=== PATIENT | female | born 1960 | race Caucasian/White ===

== ENCOUNTER 2023-09-21 16:19 | Emergency (ER) | payer OTHER ==
[~2023-09-21] VITALS: Ht 162.6 cm; Wt 102.6 kg
[2023-09-21] MEDS ORDERED: TREL1AER PO (16:28)
[2023-09-21] MEDS ORDERED: LISI20TA33 PO (16:28)
[2023-09-21] MEDS ORDERED: OMEP40CA4 PO (16:28)
[2023-09-21] MEDS ORDERED: CVSTAB PO (16:28)
[2023-09-21 20:36] LABS: BASO # 0.1 10^3/uL (0.0-0.2); BASO % 1.1 % (0.0-1.0); EOS # 0.2 10^3/uL (0.0-0.5); EOS % 3.4 % (0.0-3.0); HEMATOCRIT 41.2 % (36.0-47.0); HEMOGLOBIN 12.6 g/dl (12.0-15.5); LYMPH # 1.2 10^3/uL (1.5-5.0); LYMPH % 26.3 % (24.0-44.0); MEAN CORPUSCULAR HEMOGLOBIN 25.7 pg (27.0-33.0); MEAN CORPUSCULAR HGB CONC 30.6 g/dl (32.0-36.5); MEAN CORPUSCULAR VOLUME 83.9 fl (80.0-96.0); MONO # 0.4 10^3/uL (0.0-0.8); MONO % 9.6 % (2.0-8.0); NEUTROPHILS # 2.6 10^3/uL (1.5-8.5); NEUTROPHILS % 59.4 % (36.0-66.0); RED BLOOD COUNT 4.91 10^6/uL (4.00-5.40); WHITE BLOOD COUNT 4.4 10^3/uL (4.0-10.0)
[2023-09-21 20:37] LABS: PLATELET COUNT, AUTOMATED 173 10^3/uL (150-450)
[2023-09-21] MEDS ORDERED: ISOVUE-370 76% 100ML VIAL As Ordered ONE (20:41)
[2023-09-21 21:36] LABS: ANISOCYTOSIS 1+; PLATELET ESTIMATE NORMAL (NORMAL)
[2023-09-21 21:37] LABS: MICROCYTOSIS 1+
[2023-09-21 21:41] LABS: HYPOCHROMASIA 1+
[2023-09-21 22:21] VITALS: BP 144/80; TEMP 97.2; O2SAT 98
== END 2023-09-21 22:23 | disposition home or self-care (01) ==
LOC: M ED 16:19
DX: H92.02 Otalgia, left ear (principal); I10 Essential (primary) hypertension; E78.5 Hyperlipidemia, unspecified; Z79.810 Long term (current) use of selective estrogen receptor modulators (SERMs); Z79.899 Other long term (current) drug therapy
CPT/HCPCS: 36415; 70487; 80047; 85025; 86140; 99284; Q9967

== ENCOUNTER → 2023-10-08 | Outpatient (REF) | payer OTHER ==
[~2023-10-08] MED LIST: CVSTAB PO; LISI20TA33 PO; OMEP40CA4 PO; TREL1AER PO
== END ==
LOC: M LAB REF 17:06
PROVIDERS: ATTEND Physician Assistant Medical
DX: H60.62 Unspecified chronic otitis externa, left ear (principal)

== ENCOUNTER → 2023-10-15 | Outpatient (CLI) | payer OTHER ==
[~2023-10-15] MED LIST changes: +PROHANCE 279.3MG/ML 15ML VIAL ONE; +PROHANCE 279.3MG/ML 5ML VIAL ONE
== END ==
LOC: M PLAIMG 13:55
PROVIDERS: ATTEND Physician Assistant Medical
DX: R22.1 Localized swelling, mass and lump, neck (principal)

== ENCOUNTER → 2023-10-22 | Outpatient (CLI) | payer OTHER ==
[~2023-10-22] MED LIST changes: +LIDOCAINE 1% MDV 20ML VIAL As Ordered ONE; -PROHANCE 279.3MG/ML 15ML VIAL ONE; -PROHANCE 279.3MG/ML 5ML VIAL ONE
[2023-10-22 10:30] VITALS: TEMP 99
[2023-10-22 11:12] VITALS: BP 155/99; O2SAT 96
== END ==
LOC: M IRPRO 10:17
PROVIDERS: ATTEND Physician Assistant Medical
DX: R22.1 Localized swelling, mass and lump, neck (principal)

== ENCOUNTER → 2023-10-29 | Outpatient (CLI) | payer OTHER ==
[~2023-10-29] MED LIST changes: -LIDOCAINE 1% MDV 20ML VIAL As Ordered ONE
== END ==
LOC: M RAD 15:26
PROVIDERS: ATTEND Physician Assistant Medical
DX: R22.1 Localized swelling, mass and lump, neck (principal)

== ENCOUNTER → 2023-11-21 | Outpatient (CLI) | payer OTHER ==
[~2023-11-21] MED LIST changes: +LIDOCAINE 1% MDV 20ML VIAL As Ordered ONE
[2023-11-21 12:28] VITALS: TEMP 98.4
[2023-11-21 13:00] VITALS: BP 128/86; O2SAT 96
== END ==
LOC: M IRPRO 12:04
PROVIDERS: ATTEND Physician Assistant Medical
DX: E04.1 Nontoxic single thyroid nodule (principal)

== ENCOUNTER → 2024-01-12 | Outpatient (CLI) | payer OTHER ==
[~2024-01-12] MED LIST changes: +ASPI81CH48 PO; +FERR325T3 PO; -LIDOCAINE 1% MDV 20ML VIAL As Ordered ONE
== END ==
LOC: M ONCR 09:30
PROVIDERS: ATTEND General Practice
DX: C07 Malignant neoplasm of parotid gland (principal); Z87.891 Personal history of nicotine dependence; Z71.2 Person consulting for explanation of examination or test findings; Z98.890 Other specified postprocedural states; Z90.49 Acquired absence of other specified parts of digestive tract; Z98.51 Tubal ligation status; Z90.710 Acquired absence of both cervix and uterus; Z80.0 Family history of malignant neoplasm of digestive organs; Z79.82 Long term (current) use of aspirin; Z79.51 Long term (current) use of inhaled steroids; Z79.899 Other long term (current) drug therapy

== ENCOUNTER 2024-01-20 13:40 | Outpatient (RCR) | payer OTHER | END 2024-01-25 | LOC: M ONCR 13:40 | PROVIDERS: ATTEND General Practice | DX: Z51.0 Encounter for antineoplastic radiation therapy (principal); C07 Malignant neoplasm of parotid gland ==

== ENCOUNTER 2024-02-04 11:51 | Emergency (ER) | payer OTHER ==
[~2024-02-04] VITALS: Ht 162.6 cm; Wt 85.9 kg
[2024-02-04] MEDS: ASPIRIN 81MG CHEW TABLET PO ONE (12:33)
[2024-02-04 12:44] LABS: BASO % 0.6 % (0.0-1.0); EOS # 0.1 10^3/uL (0.0-0.5); EOS % 1.4 % (0.0-3.0); HEMATOCRIT 33.8 % (36.0-47.0); HEMOGLOBIN 10.1 g/dl (12.0-15.5); LYMPH # 0.4 10^3/uL (1.5-5.0); LYMPH % 8.2 % (24.0-44.0); MEAN CORPUSCULAR HEMOGLOBIN 25.5 pg (27.0-33.0); MEAN CORPUSCULAR HGB CONC 29.9 g/dl (32.0-36.5); MEAN CORPUSCULAR VOLUME 85.4 fl (80.0-96.0); MONO # 0.2 10^3/uL (0.0-0.8); NEUTROPHILS # 4.3 10^3/uL (1.5-8.5); NEUTROPHILS % 85.6 % (36.0-66.0); PLATELET COUNT, AUTOMATED 225 10^3/uL (150-450); RED BLOOD COUNT 3.96 10^6/uL (4.00-5.40)
[2024-02-04 12:57] LABS: INR 1.17; PARTIAL THROMBOPLASTIN TIME 29.9 SECONDS (24.8-34.2); PROTHROMBIN TIME 14.6 SECONDS (12.5-14.5)
[2024-02-04 13:24] LABS: LIPASE 56 U/L (12-53)
[2024-02-04 13:26] LABS: ALBUMIN 3.3 G/DL (3.2-5.2); ALKALINE PHOSPHATASE 87 U/L (46-116); ALT/SGPT 27 U/L (7.0-40); AST/SGOT 32 U/L (<34); BILIRUBIN,DIRECT 0.4 MG/DL (<0.4); BLOOD UREA NITROGEN 17 MG/DL (9-23); CALCIUM LEVEL 9.1 MG/DL (8.3-10.6); CARBON DIOXIDE LEVEL 23 MMOL/L (20-31); CHLORIDE LEVEL 113 MMOL/L (98-107); CREATININE FOR GFR 0.47 MG/DL (0.55-1.30); GLOMERULAR FILTRATION RATE > 60.0 (>45); GLUCOSE, FASTING 137 MG/DL (74-106); SODIUM LEVEL 143 MMOL/L (136-145)
[2024-02-04 13:29] LABS: CPK CREATINE PHOSPHOKINASE 79 U/L (34-145); MB/CK RELATIVE INDEX 1.26 (< OR =4); THYROID STIMULATING HORMONE 1.125 uIU/ML (0.55-4.78)
[2024-02-04 14:23] LABS: MB/CK RELATIVE INDEX 1.36 (< OR =4)
[2024-02-04] MEDS ORDERED: ISOVUE-370 76% 100ML VIAL As Ordered ONE (14:51)
[2024-02-04 17:01] VITALS: BP 137/74; TEMP 97.7; O2SAT 97
== END 2024-02-04 17:05 | disposition home or self-care (01) ==
LOC: M ED 11:51
DX: R07.9 Chest pain, unspecified (principal); I44.0 Atrioventricular block, first degree; I45.81 Long QT syndrome; K21.9 Gastro-esophageal reflux disease without esophagitis; I10 Essential (primary) hypertension; Z87.891 Personal history of nicotine dependence; Z79.1 Long term (current) use of non-steroidal anti-inflammatories (NSAID); Z79.810 Long term (current) use of selective estrogen receptor modulators (SERMs); Z79.899 Other long term (current) drug therapy
CPT/HCPCS: 36415; 71045; 71275; 80048; 80076; 82550; 82553; 83690; 84443; 84484; 85025; 85610; 85730; 93005; 93041; 94760; 99285; Q9967

== ENCOUNTER → 2024-02-25 | Outpatient (RCR) | payer OTHER ==
[~2024-02-25] MED LIST changes: +FLUC100T3 PO; +ONDA-84 PO; +PROC10TA5 PO
== END ==
LOC: M ONCR 01-26 13:50
PROVIDERS: ATTEND General Practice
DX: Z51.0 Encounter for antineoplastic radiation therapy (principal); C07 Malignant neoplasm of parotid gland

== ENCOUNTER 2024-03-22 12:20 | Outpatient (RCR) | payer OTHER ==
[2024-03-26] MEDS ORDERED: OXYC1SOL3 PO (14:21)
[2024-03-26] MEDS ORDERED: OLAN1TAB16 PO (14:22)
[2024-04-02] MEDS ORDERED: POTA8CAP10 PO (16:31)
[2024-04-02] MEDS ORDERED: ESSE250T PO (16:31)
== END 2024-03-27 ==
LOC: M ONCR 12:20
PROVIDERS: ATTEND General Practice
DX: Z51.0 Encounter for antineoplastic radiation therapy (principal); C07 Malignant neoplasm of parotid gland

== ENCOUNTER → 2024-03-26 | Outpatient (CLI) | payer OTHER ==
[~2024-03-26] MED LIST changes: +ESSE250T PO; +OLAN1TAB16 PO; +OXYC1SOL3 PO; +POTA8CAP10 PO
== END ==
LOC: M ONCR 13:54
PROVIDERS: ATTEND General Practice
DX: L59.8 Other specified disorders of the skin and subcutaneous tissue related to radiation (principal); W88.8XXA Exposure to other ionizing radiation, initial encounter; M54.2 Cervicalgia

== ENCOUNTER → 2024-05-04 | Outpatient (CLI) | payer OTHER | LOC: M ONCR 14:17 | PROVIDERS: ATTEND General Practice | DX: C07 Malignant neoplasm of parotid gland (principal); Z92.21 Personal history of antineoplastic chemotherapy; Z92.3 Personal history of irradiation ==

== ENCOUNTER → 2024-06-29 | Outpatient (CLI) | payer OTHER | LOC: M ONCR 09:48 | PROVIDERS: ATTEND General Practice | DX: C07 Malignant neoplasm of parotid gland (principal); Z79.82 Long term (current) use of aspirin; Z79.899 Other long term (current) drug therapy; Z87.891 Personal history of nicotine dependence; Z92.21 Personal history of antineoplastic chemotherapy; Z92.3 Personal history of irradiation ==

== ENCOUNTER → 2024-09-29 | Outpatient (CLI) | payer OTHER | LOC: M ONCR 08:09 | PROVIDERS: ATTEND General Practice | DX: Z08 Encounter for follow-up examination after completed treatment for malignant neoplasm (principal); Z85.858 Personal history of malignant neoplasm of other endocrine glands; Z98.890 Other specified postprocedural states; Z92.21 Personal history of antineoplastic chemotherapy; Z92.3 Personal history of irradiation; Z87.891 Personal history of nicotine dependence; Z79.51 Long term (current) use of inhaled steroids; Z79.82 Long term (current) use of aspirin; Z79.899 Other long term (current) drug therapy ==

== ENCOUNTER → 2025-04-01 | Outpatient (CLI) | payer OTHER ==
[~2025-04-01] MED LIST changes: -ESSE250T PO; +MAGN250T17 PO
== END ==
LOC: M ONCR 10:12
PROVIDERS: ATTEND General Practice
DX: C07 Malignant neoplasm of parotid gland (principal); Z87.891 Personal history of nicotine dependence; Z98.890 Other specified postprocedural states; Z92.21 Personal history of antineoplastic chemotherapy; Z92.3 Personal history of irradiation; Z79.82 Long term (current) use of aspirin; Z79.899 Other long term (current) drug therapy

== ENCOUNTER → 2025-07-01 | Outpatient (CLI) | payer OTHER ==
[~2025-07-01] MED LIST changes: +ISOVUE-370 76% 100 ML VIAL ONE
== END ==
LOC: M PLAIMG 12:53
PROVIDERS: ATTEND Otolaryngology
DX: R91.1 Solitary pulmonary nodule (principal); C07 Malignant neoplasm of parotid gland
CPT/HCPCS: 70491; Q9967

== ENCOUNTER → 2025-07-01 | Outpatient (CLI) | payer OTHER ==
[~2025-07-01] MED LIST changes: -ISOVUE-370 76% 100 ML VIAL ONE
[2025-07-01 11:18] LABS: FREE T4 1.20 NG/DL (0.89-1.76)
[2025-07-01 13:22] LABS: ALT/SGPT 26 U/L (7.0-40); AST/SGOT 34 U/L (<34); CALCIUM LEVEL 9.1 MG/DL (8.3-10.6); CARBON DIOXIDE LEVEL 25 MMOL/L (20-31); CHLORIDE LEVEL 110 MMOL/L (98-107); CREATININE FOR GFR 0.60 MG/DL (0.55-1.30); GLOMERULAR FILTRATION RATE > 90.0 (>45); POTASSIUM SERUM 4.3 MMOL/L (3.5-5.1); SODIUM LEVEL 145 MMOL/L (136-145)
== END ==
LOC: M ONCR 09:34
PROVIDERS: ATTEND General Practice
DX: C07 Malignant neoplasm of parotid gland (principal); Z87.891 Personal history of nicotine dependence; Z92.21 Personal history of antineoplastic chemotherapy; Z92.3 Personal history of irradiation; Z79.82 Long term (current) use of aspirin; Z79.51 Long term (current) use of inhaled steroids; Z79.899 Other long term (current) drug therapy
CPT/HCPCS: 10005; 36415; 80053; 84439; 84443; 88307; G0463